=== PATIENT | male | born 1970 | race Two or more races ===

== ENCOUNTER 2017-11-03 12:24 | Emergency (ER) | payer OTHER ==
[~2017-11-03] VITALS: Ht 177.8 cm; Wt 99.8 kg
[2017-11-03 12:31] VITALS: BP 147/88
--- NOTE | 2017-11-03 13:48 | NUR ---
URINE SAMPLE COLLECTED SENT TO LAB
[2017-11-03 13:50] LABS: APPEARANCE,URINE Clear (CLEAR); BILIRUBIN,URINE Negative (NEGATIVE); BLOOD, URINE Negative Ery/uL (NEGATIVE); COLOR,URINE Yellow (YELLOW); KETONES,URINE Negative (NEGATIVE); LEUKOCYTE ESTERASE ,URINE Negative (NEGATIVE); NITRITE, URINE Negative (NEGATIVE); PH,URINE 7.5 (5.0-8.0); PROTEIN,URINE Negative (NEGATIVE); UGLUCOSE Negative (NEGATIVE); UROBILINOGEN,URINE 0.2 EU/dL (0.2)
--- NOTE | 2017-11-03 14:39 | NUR ---
SPOUTING INSTALLER AT BEDSIDE
[2017-11-03] MEDS ORDERED: HYDROCODONE/APAP 10/325MG 1 EA TABLET ONE (14:46)
[2017-11-03] MEDS ORDERED: HYDROCODONE/APAP 10/325MG 1 EA TABLET PO ONE (15:00)
[2017-11-03] MEDS ORDERED: AZITHROMYCIN 250 MG TABLET ONE (15:53)
[2017-11-03] MEDS ORDERED: CEFTRIAXONE 1 G VIAL ONE (15:53)
[2017-11-03] MEDS ORDERED: LIDOCAINE /MPF 1% VIAL 5 ML VIAL ONE (15:53)
[2017-11-03] MEDS ORDERED: AZITHROMYCIN 250 MG TABLET PO ONE (16:00)
[2017-11-03] MEDS ORDERED: CEFTRIAXONE 1 G VIAL IM ONE (16:00)
== END 2017-11-03 17:16 | disposition home or self-care (01) ==
LOC: ER 12:26
DX: N45.1 Epididymitis (principal); F15.20 Other stimulant dependence, uncomplicated; F17.200 Nicotine dependence, unspecified, uncomplicated
CPT/HCPCS: 76870-TC; 81000-TC; A4606; J0696; J3490; Z7610

== ENCOUNTER 2020-02-09 17:19 | Emergency (ER) | payer OTHER ==
[~2020-02-09] VITALS: Ht 175.3 cm; Wt 89.4 kg
--- NOTE | 2020-02-09 18:08 | NUR ---
[id number] HOME, NON RADIATING CHEST PAIN SINCE THIS MORNING ASPIRIN AND NITRO X 1 GIVEN SHEET ROCK NAILER. PT AAOX4, VSS. RR EVEN & UNLABORED. DENIES SOB, DIZZINESS, N/V, ARM/JAW PAIN AT THIS TIME. PT SEEN & EVAL'D BY PRISCILLA PANDYA. PLACED ON WASHCLOTH FOLDER, NSR. WILL CONT TO MONITOR.
[2020-02-09 18:09] LABS: BASOPHILS # (AUTO) 0.1 /CMM (0.0-0.2); BASOPHILS % (AUTO) 2.4 % (0.0-2.0); EOSINOPHILS % (AUTO) 11.1 % (0.0-6.0); HEMATOCRIT 33 % (39-51); HEMOGLOBIN 10.4 g/dL (13.5-17.5); LYMPHOCYTES # (AUTO) 1.8 /CMM (0.8-4.8); LYMPHOCYTES % (AUTO) 29.2 % (20.0-44.0); MEAN CORPUSCULAR HGB CONC 31 g/dl (31.0-36.0); MEAN CORPUSCULAR VOLUME 73 fL (80-96); MONOCYTES # (AUTO) 0.6 /CMM (0.1-1.30); MONOCYTES % (AUTO) 10.1 % (2.0-12.0); NEUTROPHILS # (AUTO) 2.9 /CMM (1.8-8.9); NEUTROPHILS % (AUTO) 47.2 % (43.0-81.0); PLATELET COUNT (AUTO) 228 /CMM (150-450); RED BLOOD CELL COUNT(AUTO) 4.58 MIL/uL (4.5-6.0); WHITE BLOOD COUNT (AUTO) 6.1 K/uL (4.3-11.0)
[2020-02-09 18:24] LABS: CALCIUM, SERUM 8.3 mg/dL (8.5-10.1); CARBON DIOXIDE 23 mmol/L (21-32); CHLORIDE 107 mmol/L (98-107); CREATININE 0.9 mg/dL (0.6-1.3); GLUCOSE 105 mg/dL (74-106); POTASSIUM 3.5 mmol/L (3.5-5.1); SODIUM SERUM 140 mmol/L (136-145); UREA NITROGEN, BLOOD 13 mg/dL (7-18)
[2020-02-09 18:31] LABS: ALBUMIN 3.6 g/dL (3.4-5.0); BILIRUBIN,DIRECT 0.1 mg/dL (0.0-0.2); BILIRUBIN,TOTAL 0.3 mg/dL (0.2-1.0); TOTAL PROTEIN, SERUM 6.6 g/dL (6.4-8.2)
[2020-02-09 18:41] LABS: B-TYPE NATRIURETIC PEPTIDE 21 PG/ML (0-125)
[2020-02-09 19:28] VITALS: BP 135/81
--- NOTE | 2020-02-09 19:28 | NUR ---
Patient discharged to home in stable condition. Written and verbal after care instructions given. Patient verbalizes understanding of instruction. IV removed. Catheter intact and site benign. Pressure and 4x4 applied to site. No bleeding noted.
== END 2020-02-09 19:29 | disposition home or self-care (01) ==
LOC: ER 17:19
DX: R07.89 Other chest pain (principal); F17.200 Nicotine dependence, unspecified, uncomplicated; D64.9 Anemia, unspecified; K21.9 Gastro-esophageal reflux disease without esophagitis
CPT/HCPCS: 36415; 71045-TC; 80048-TC; 80076-TC; 83690-TC; 83880; 84484-TC; 85025-TC